=== PATIENT | female | born 1990 | race African-American/Black ===

== ENCOUNTER 2024-05-01 12:37 | Emergency (ER) | payer MEDICAID ==
[~2024-05-01] VITALS: Ht 170.2 cm; Wt 82.6 kg
[2024-05-01] MEDS ORDERED: AZITHROMYCIN 250 MG TABLET ONE (14:47)
[2024-05-01] MEDS ORDERED: predniSONE 50 MG TABLET ONE (14:47)
[2024-05-01] MEDS: AZITHROMYCIN 250 MG TABLET PO ONE (14:52)
[2024-05-01] MEDS: predniSONE 50 MG TABLET PO ONE (14:52)
[2024-05-01] MEDS ORDERED: PRED50TA PO (14:54)
[2024-05-01] MEDS ORDERED: AZIT500T PO (14:54)
[2024-05-01] MEDS ORDERED: PROM118S5 PO (14:54)
[2024-05-01 14:56] LABS: BASOPHILS % (AUTO) 0.4 % (0.0-2.0); EOSINOPHILS % (AUTO) 0.2 % (0.0-7.0); HEMATOCRIT 32.5 % (31.2-41.9); HEMOGLOBIN 10.4 g/dL (10.9-14.3); LYMPHOCYTES # (AUTO) 1.3 K/uL (0.8-4.8); LYMPHOCYTES % (AUTO) 17.2 % (20.5-51.5); MEAN CORPUSCULAR HGB CONC 32 g/dL (32.3-35.6); MEAN CORPUSCULAR VOLUME 74.9 fL (75.5-95.3); MONOCYTES % (AUTO) 12.5 % (0.0-11.0); NEUTROPHILS # (AUTO) 5.4 K/uL (1.8-8.9); NEUTROPHILS % (AUTO) 69.7 % (38.5-71.5); PLATELET COUNT (AUTO) 226 K/uL (179-408); RED BLOOD CELL COUNT(AUTO) 4.33 MIL/uL (3.63-4.92); RED CELL DISTRIBUTION WIDTH 13.4 % (12.3-17.7); WHITE BLOOD COUNT (AUTO) 7.7 K/uL (3.8-11.8)
[2024-05-01 15:00] LABS: DIFFERENTIAL COMMENT 1
[2024-05-01 15:18] LABS: CALCIUM 8.6 mg/dL (8.5-10.1); CARBON DIOXIDE 27 mmol/L (21-32); CHLORIDE 104 mmol/L (98-107); CREATININE 0.7 mg/dL (0.6-1.3); GLUCOSE 75 mg/dL (74-106); POTASSIUM 4.2 mmol/L (3.5-5.1); SODIUM SERUM 139 mmol/L (136-145); UREA NITROGEN, BLOOD 5 mg/dL (7-18)
[2024-05-01 15:27] LABS: ALANINE AMINOTRANSFERASE 14 U/L (14-59); ALBUMIN 3.3 g/dL (3.4-5.0); ALKALINE PHOSPHATASE 53 U/L (50-136); ASPARTATE AMINOTRANSFERASE 11 U/L (15-37); BILIRUBIN,DIRECT 0.1 mg/dL (0.0-0.2); BILIRUBIN,TOTAL 0.5 mg/dL (0.2-1.0); TOTAL PROTEIN, SERUM 7.5 g/dL (6.4-8.2)
[2024-05-01 16:01] VITALS: BP 119/72; O2SAT 100
== END 2024-05-01 16:01 | disposition home or self-care (01) ==
LOC: ER 12:37
DX: J18.9 Pneumonia, unspecified organism (principal); Z79.52 Long term (current) use of systemic steroids
CPT/HCPCS: 99285; 71045; 80076; 80048; 85025; 84484; 36415; 93005; J7512; A4606; A4663; Q0144